=== PATIENT | male | born 1980 | race Caucasian/White ===

== ENCOUNTER 2021-05-15 05:18 | Inpatient (IN) | payer OTHER ==
[~2021-05-15] VITALS: Ht 177.8 cm; Wt 79.4 kg
[2021-05-15] MEDS ORDERED: haloperidol lactate 5mg/ml inj IM ONE (05:20)
[2021-05-15] MEDS ORDERED: LORazepam 2 mg/ml vial IM ONE (05:20)
[2021-05-15] MEDS ORDERED: normal saline 1000ML IV soln IVB ONE ×2 (05:25→07:30)
[2021-05-15 06:14] LABS: CLARITY,URINE CLEAR (Clear); GLUCOSE, URINE NEGATIVE (Neg); KETONES,URINE 15 mg/dl (Neg); LEUKOCYTE ESTERASE ,URINE NEGATIVE (Neg); NITRITES, URINE NEGATIVE (Neg); OCCULT BLOOD,URINE NEGATIVE (Neg); PH,URINE 5.5 (4.8-8.0); PROTEIN,URINE TRACE mg/dl (Neg)
[2021-05-15 06:15] LABS: BASOPHILS % (AUTO) 0.5 % (0-1); EOSINOPHILS # (AUTO) 0.1 X10'3 (0-0.9); EOSINOPHILS % (AUTO) 0.9 % (0-6); HEMATOCRIT 49.6 % (42.0-52.0); HEMOGLOBIN 16.8 g/dl (14.0-17.9); LYMPHOCYTES # (AUTO) 2.5 X10'3 (1.1-4.8); LYMPHOCYTES % (AUTO) 24.3 % (21-51); MEAN CORPUSCULAR HGB CONC 33.9 g/dL (33.0-36.5); MEAN CORPUSCULAR VOLUME 88.7 FL (78-98); MEAN PLATELET VOLUME 7.2 FL (7.4-10.4); MONOCYTES % (AUTO) 10.2 % (2-12); NEUTROPHILS # (AUTO) 6.5 X10'3 (1.8-7.7); NEUTROPHILS % (AUTO) 64.1 % (42-75); PLATELET COUNT 338 X10'3 (140-440); RED CELL DISTRIBUTION WIDTH 13.3 % (11.5-14.5); WHITE BLOOD COUNT 10.1 X10'3 (4.5-11.0)
[2021-05-15 06:15] LABS: COLOR,URINE DARK YELLOW (Yellow); UA COLLECTION TYPE STRAIGHT CATH
[2021-05-15 06:20] LABS: BACTERIA,URINE NONE SEEN /HPF (Neg); MUCUS STRANDS MODERATE /LPF (Neg); RBC,URINE NONE SEEN /HPF (0-2); SQUAMOUS EPITHELIAL CELL,UR NONE SEEN /LPF (FEW); WBC,URINE 0-4 /HPF (0-4)
[2021-05-15 06:32] LABS: URINE AMPHETAMINE SCREEN POSITIVE (Neg); URINE BARBITUATE SCREEN NEGATIVE (Neg); URINE BENZODIAZEPINES SCREEN POSITIVE (Neg); URINE CANNABINOID SCREEN POSITIVE (Neg); URINE COCAINE SCREEN NEGATIVE (Neg); URINE METHADONE SCREEN NEGATIVE (Neg); URINE OPIATE SCREEN NEGATIVE (Neg); URINE PHENCYCLIDINE SCREEN NEGATIVE (Neg)
[2021-05-15 06:33] LABS: ALANINE AMINOTRANSFERASE 168 U/L (12-78); ALBUMIN 4.7 G/DL (3.4-5.0); ALBUMIN/GLOBULIN RATIO 1.1 (1.1-1.5); ALKALINE PHOSPHATASE 91 IU/L (46-116); ANION GAP 16 (8-16); ASPARTATE AMINO TRANSFERASE 83 U/L (10-37); BILIRUBIN,TOTAL 3.5 MG/DL (0.1-1.0); BLOOD UREA NITROGEN 23 MG/DL (7-18); CALCIUM 9.3 MG/DL (8.5-10.1); CHLORIDE 103 MMOL/L (99-107); CREATININE 1.35 MG/DL (0.60-1.10); GLUCOSE 120 MG/DL (70-104); POTASSIUM 3.7 MMOL/L (3.5-5.1); SODIUM 142 MMOL/L (135-145); TOTAL CARBON DIOXIDE 22.9 MMOL/L (24-32); TOTAL PROTEIN 8.8 G/DL (6.4-8.2); eGFR 59 ML/MIN
[2021-05-15 06:34] LABS: CREATINE KINASE 504 U/L (39-308); ETHANOL < 0.010 GM/DL (0.0-0.010)
[2021-05-15] MEDS ORDERED: dexamethasone sod phosphate 10mg/ml inj IV STA (07:26)
[2021-05-15 08:09] LABS: CKMB RELATIVE INDEX 0.6 RATIO (0-2.5)
[2021-05-15] MEDS ORDERED: magnesium hydroxide 30ml (MOM) UD suspension PO PRN (09:15)
[2021-05-15] MEDS ORDERED: HYDROcodone/acetaminophen 5mg/325mg tablet PO PRN (09:15)
[2021-05-15] MEDS ORDERED: ondansetron/PF 4mg/2ml inj IV PRN (09:15)
[2021-05-15] MEDS ORDERED: LORazepam 2 mg/ml vial IV PRN (09:15)
[2021-05-15] MEDS ORDERED: potassium Cl 40MEQ/1/2NS 520ml 520 ML IV PRN ×2 (09:15)
[2021-05-15] MEDS ORDERED: ALBUTEROL INHALER 1 PUFF/90 MCG INHALER IH PRN (09:15)
[2021-05-15] MEDS ORDERED: haloperidol lactate 5mg/ml inj IM PRN (09:15)
[2021-05-15] MEDS ORDERED: potassium Cl 20 mEq SR tablet PO PRN ×2 (09:15)
[2021-05-15] MEDS ORDERED: mag hydrox/Alum hydrox/simeth 30ml oral suspension PO PRN (09:15)
[2021-05-15] MEDS ORDERED: bisacodyl 10mg suppository rectal RC PRN (09:15)
[2021-05-15] MEDS ORDERED: HYDROcodone/acetaminophen 10/325mg tab PO PRN (09:15)
[2021-05-15] MEDS ORDERED: magnesium 4gm in 100ml NS 100 ML IV PRN (09:15)
[2021-05-15] MEDS ORDERED: acetaminophen 325mg tablet PO PRN ×2 (09:15)
[2021-05-15] MEDS ORDERED: magnesium 2GM in 50ml NS 50 ML IV PRN (09:15)
[2021-05-15] MEDS ORDERED: magnesium Cl slow-release 64mg tablet PO PRN (09:15)
[2021-05-15] MEDS: normal saline 1000ml 1,000 ML IV SCH ×2 (09:22→19:59)
[2021-05-15 11:13] LABS: PARTIAL THROMBOPLASTIN TIME 26 SECONDS (22-32)
--- NOTE | 2021-05-15 15:30 | NUR ---
Restraints discontinued. Full bed change.
[2021-05-15] MEDS ORDERED: UNABLE TO OBTAIN (18:15)
[2021-05-15] MEDS: enoxaparin 40mg/0.4ml syringe SUBCUT SCH (19:58)
[2021-05-15] MEDS: docusate sod 100mg capsule PO SCH (19:59)
[2021-05-15] MEDS: K and/or MAG REPLACEMENT MC SCH (19:59)
--- NOTE | 2021-05-15 20:00 | NUR ---
Problems reprioritized. Patient report given, questions answered & plan of care reviewed with ruddy byrne.
[2021-05-15 21:00] VITALS: BP 101/58
[2021-05-15] MEDS ORDERED: temazepam 15mg capsule PO PRN (21:00)
[2021-05-15 22:30] VITALS: BP 96/56
[2021-05-16] MEDS: normal saline 1000ml 1,000 ML IV SCH ×3 (01:47→23:05)
[2021-05-16 02:00] VITALS: BP 102/58
[2021-05-16 04:00] VITALS: BP 95/46
--- NOTE | 2021-05-16 06:53 | NUR ---
Problems reprioritized. Patient report given, questions answered & plan of care reviewed with MAIN Albrecht.
[2021-05-16 07:10] LABS: BASOPHILS % (AUTO) 0.4 % (0-1); EOSINOPHILS % (AUTO) 0.2 % (0-6); HEMATOCRIT 37.3 % (42.0-52.0); LYMPHOCYTES # (AUTO) 2.3 X10'3 (1.1-4.8); MEAN CORPUSCULAR HEMOGLOBIN 30.3 PG (27.0-31.0); MEAN CORPUSCULAR VOLUME 86.5 FL (78-98); MEAN PLATELET VOLUME 6.9 FL (7.4-10.4); MONOCYTES # (AUTO) 0.6 X10'3 (0-0.9); MONOCYTES % (AUTO) 7.7 % (2-12); NEUTROPHILS # (AUTO) 5.5 X10'3 (1.8-7.7); NEUTROPHILS % (AUTO) 64.7 % (42-75); PLATELET COUNT 243 X10'3 (140-440); RED BLOOD COUNT 4.31 X10'6 (4.70-6.10); RED CELL DISTRIBUTION WIDTH 13.2 % (11.5-14.5); WHITE BLOOD COUNT 8.4 X10'3 (4.5-11.0)
[2021-05-16 07:14] LABS: ALANINE AMINOTRANSFERASE 87 U/L (12-78); ALBUMIN/GLOBULIN RATIO 1.1 (1.1-1.5); ALKALINE PHOSPHATASE 56 IU/L (46-116); ANION GAP 12 (8-16); ASPARTATE AMINO TRANSFERASE 36 U/L (10-37); BLOOD UREA NITROGEN 17 MG/DL (7-18); BUN/CREATININE RATIO 21.3 (5.4-32.0); CALCIUM 7.7 MG/DL (8.5-10.1); CHLORIDE 111 MMOL/L (99-107); GLUCOSE 89 MG/DL (70-104); POTASSIUM 3.8 MMOL/L (3.5-5.1); SODIUM 144 MMOL/L (135-145); TOTAL CARBON DIOXIDE 21.3 MMOL/L (24-32); TOTAL PROTEIN 5.7 G/DL (6.4-8.2); eGFR > 90 ML/MIN
[2021-05-16] MEDS: K and/or MAG REPLACEMENT MC SCH ×2 (08:00→20:00)
[2021-05-16] MEDS: docusate sod 100mg capsule PO SCH ×2 (08:00→23:06)
[2021-05-16] MEDS: enoxaparin 40mg/0.4ml syringe SUBCUT SCH ×2 (09:28→23:09)
[2021-05-16 11:00] VITALS: BP 95/52
--- NOTE | 2021-05-16 13:59 | NUR ---
Patient cannot recall medical information at this time, will try to dart again later
[2021-05-16 15:00] VITALS: BP 103/54
--- NOTE | 2021-05-16 18:50 | NUR ---
Problems reprioritized. Patient report given, questions answered & plan of care reviewed with Tonia QUACH.
[2021-05-16 19:00] VITALS: BP 92/41
--- NOTE | 2021-05-16 19:00 | NUR ---
Patient in room COVID 01. I have received report from gilson QUACH and had the opportunity to ask questions and assume patient care. Addendum: 05/16/21 at 1922 by Tonia Sauceda RN Amended: Links added.
--- NOTE | 2021-05-16 20:00 | NUR ---
Pt. awake and alert to self and place. Pt. does not remember or events at this time; reoriented pt. Pt. denies c/o pain at this time, coughing or SOB at this time. Maintained COVID-19 isolation precaution. Call light within reach and bed in low position. Addendum: 05/17/21 at 0338 by Tonia Sauceda RN Amended: Links added.
[2021-05-16 22:00] VITALS: BP 110/59
[2021-05-17 02:00] VITALS: BP 102/53
[2021-05-17 06:00] VITALS: BP 96/61
--- NOTE | 2021-05-17 06:00 | NUR ---
Problems reprioritized. Patient report given, questions answered & plan of care reviewed with Layla QUACH. Addendum: 05/17/21 at 0747 by Tonia Sauceda RN Amended: Links added.
--- NOTE | 2021-05-17 07:06 | NUR ---
Patient in room COVID 04. I have received report from caty jolley and had the opportunity to ask questions and assume patient care.
[2021-05-17 07:51] LABS: BASOPHILS % (AUTO) 0.6 % (0-1); EOSINOPHILS # (AUTO) 0.1 X10'3 (0-0.9); EOSINOPHILS % (AUTO) 1.2 % (0-6); HEMATOCRIT 37.3 % (42.0-52.0); HEMOGLOBIN 12.7 g/dl (14.0-17.9); LYMPHOCYTES # (AUTO) 1.7 X10'3 (1.1-4.8); LYMPHOCYTES % (AUTO) 37.9 % (21-51); MEAN CORPUSCULAR HEMOGLOBIN 30.2 PG (27.0-31.0); MEAN CORPUSCULAR HGB CONC 34.1 g/dL (33.0-36.5); MEAN CORPUSCULAR VOLUME 88.6 FL (78-98); MONOCYTES # (AUTO) 0.3 X10'3 (0-0.9); MONOCYTES % (AUTO) 7.7 % (2-12); NEUTROPHILS # (AUTO) 2.3 X10'3 (1.8-7.7); NEUTROPHILS % (AUTO) 52.6 % (42-75); PLATELET COUNT 215 X10'3 (140-440); RED BLOOD COUNT 4.21 X10'6 (4.70-6.10); WHITE BLOOD COUNT 4.4 X10'3 (4.5-11.0)
[2021-05-17] MEDS: K and/or MAG REPLACEMENT MC SCH (08:00)
[2021-05-17] MEDS: docusate sod 100mg capsule PO SCH (08:00)
[2021-05-17 08:04] LABS: ALANINE AMINOTRANSFERASE 65 U/L (12-78); ALBUMIN 2.8 G/DL (3.4-5.0); ALKALINE PHOSPHATASE 53 IU/L (46-116); ANION GAP 8 (8-16); ASPARTATE AMINO TRANSFERASE 24 U/L (10-37); BILIRUBIN,TOTAL 0.7 MG/DL (0.1-1.0); BLOOD UREA NITROGEN 7 MG/DL (7-18); BUN/CREATININE RATIO 9.7 (5.4-32.0); CALCIUM 7.3 MG/DL (8.5-10.1); CHLORIDE 113 MMOL/L (99-107); CREATININE 0.72 MG/DL (0.60-1.10); GLUCOSE 102 MG/DL (70-104); MAGNESIUM 1.8 MG/DL (1.5-2.4); POTASSIUM 3.7 MMOL/L (3.5-5.1); SODIUM 146 MMOL/L (135-145); TOTAL CARBON DIOXIDE 24.9 MMOL/L (24-32); TOTAL PROTEIN 5.5 G/DL (6.4-8.2); eGFR > 90 ML/MIN
[2021-05-17] MEDS: enoxaparin 40mg/0.4ml syringe SUBCUT SCH (08:49)
[2021-05-17 11:00] VITALS: BP 114/63
--- NOTE | 2021-05-17 13:15 | NUR ---
reviewed all discharge instructions,including covid distancing and self care,f/u with Ghulam cardenas dc'd from [facility], site clear, pt strongly advised to refrain from drug/smoking, no new meds ,admitting notifed of pts real name, pt dc'd with all belongings
== END 2021-05-17 13:26 | disposition home or self-care (01) | DRG 177 ==
LOC: ER 05:19 → ED HOLD 09:18 → EDBEDREQ 18:59 → COVID IP 19:54
PROVIDERS: ADMIT Family Medicine; ATTEND Family Medicine
DX: U07.1 COVID-19 (principal); G92 Toxic encephalopathy; M62.82 Rhabdomyolysis; N17.9 Acute kidney failure, unspecified; F12.10 Cannabis abuse, uncomplicated; F13.10 Sedative, hypnotic or anxiolytic abuse, uncomplicated; R74.01 Elevation of levels of liver transaminase levels; F15.10 Other stimulant abuse, uncomplicated; Z59.0 Homelessness; Z78.1 Physical restraint status
CPT/HCPCS: 36415; 70450; 71045; 76700; 80053; 80305; 80320; 81001; 82550; 82553; 83605; 83735; 85025; 85610; 85730; 87040; 87635; 93005; 94760; 96372; 96374; 97116; 97161; 97530; 99285; C9803; G0378; J1100; J1630; J1650; J2060; J7030